=== PATIENT | female | born 1935 ===

== ENCOUNTER 2019-08-05 12:55 | Outpatient (CLI) | payer MEDICARE, SELFPAY ==
--- NOTE | ~2019-08-05 | XR_ITS ---
EXAMINATION: XR abdomen/kub 1V EXAM DATE: 08/05/2019 13:22 INDICATION: Constipation. TECHNIQUE: Frontal projection(s) of the abdomen for interpretation. There is no prior study for anupam foster. FINDINGS: There is expected amount of colonic stool and gas. No small bowel dilation, nonobstructiv e bowel gas pattern. There are no suspicious calcifications identified. There is no organomegaly suspected. Lung bases unremarkable. Moderate lumbar scoliosis and moderate to severe mid and lower bill mbar disc disease. IMPRESSION: Nonobstructive bowel gas pattern with expected amount of colonic stool and gas. Reviewed, dictated and finalized at location B. IMPRESSION: Nonobstructive bowel gas pattern with expected amount of colonic s tool and gas.
== END 2019-08-05 12:56 | disposition home or self-care (01) ==
PROVIDERS: PCP Family Medicine; Visit Provider Physician Assistant
DX: K59.00 Constipation, unspecified (principal)
CPT/HCPCS: 74018